=== PATIENT | male | born 1965 | race Caucasian/White ===

== ENCOUNTER 2020-05-30 16:15 | Emergency (ER) | payer OTHER ==
[~2020-05-30] VITALS: Ht 180.3 cm; Wt 176.4 kg
[~2020-05-30 16:15] MED LIST: BUPROPION; BYSTOLIC2.5 MG; HTN MED; INDOMETHACIN 2525 MG PO; KEFLEX500 MG PO; NORCO 5-325 TA1 EACH PO; PERCOCET 5-3251 EACH PO; PRINIVIL20 M1 PO; ZESTORETIC 20-1 EACH PO; ZOLOFT
[2020-05-30 17:50] VITALS: BP 105/68
== END 2020-05-30 17:52 | disposition home or self-care (01) ==
LOC: M.ERS 16:15
DX: I83.228 Varicose veins of left lower extremity with both ulcer of other part of lower extremity and inflammation (principal); R55 Syncope and collapse; I10 Essential (primary) hypertension; G47.30 Sleep apnea, unspecified; Z88.0 Allergy status to penicillin; Z88.5 Allergy status to narcotic agent; Z90.49 Acquired absence of other specified parts of digestive tract